=== PATIENT | female | born 2000 | race Caucasian/White ===

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

== ENCOUNTER 2018-01-05 16:11 | Emergency (ER) | payer OTHER ==
[2018-01-05 16:11] VITALS: BMI 34.5
[2018-01-05 16:25] VITALS: BP 138/84; PULSE 95; RESP 18; TEMP 98.1; O2SAT 98
[2018-01-05] MEDS ORDERED: PROPARACAINE/FLUORESCEIN SOD 100 DROP/5 ML BOTTLE ONE (16:42)
--- NOTE | 2018-01-05 16:48 | C.PDOC ---
History Of Present Illness 17 y/o female presents to ED complaining of itchiness to the right eye associated with redness and discharge since yesterday. Patient does not wear contact lens nor glasses. States it feels like something is in it. Otherwise she denies any visual changes, bleeding, pain, diplopia, headache, fever, sick contacts, or photophobia. Time Seen by Provider: 01/05/18 16:16 Chief Complaint (Nursing): Eye Problem History Per: Patient History/Exam Limitations: no limitations Onset/Duration Of Symptoms: Days Current Symptoms Are (Timing): Still Present Past Medical History Reviewed: Historical Data, Nursing Documentation, Vital Signs Vital Signs: Last Vital Signs Temp 98.1 F 01/05/18 16:18 Pulse 95 H 01/05/18 16:18 Resp 18 01/05/18 16:18 BP 138/84 01/05/18 16:18 Pulse Ox 98 01/05/18 16:18 - Medical History PMH: Asthma Family History: States: No Known Family Hx - Social History Hx Tobacco Use: No Hx Alcohol Use: No Hx Substance Use: No - Immunization History Hx Tetanus Toxoid Vaccination: Yes Hx Influenza Vaccination: No Hx Pneumococcal Vaccination: No Review Of Systems Except As Marked, All Systems Reviewed And Found Negative. Constitutional: Negative for: Fever Eyes: Positive for: Redness, Other (itchiness and discharge to R eye). Negative for: Pain, Vision Change Cardiovascular: Negative for: Chest Pain Respiratory: Negative for: Shortness of Breath Neurological: Negative for: Weakness, Numbness Physical Exam - Physical Exam Appears: Non-toxic, No Acute Distress Skin: Warm, Dry Head: Atraumatic, Normacephalic Eye(s): bilateral: PERRL, EOMI, right: Other (mild injection and discharge, no fluroscience uptake, no fb with lid enversion) Ear(s): Bilateral: Normal Nose: Normal Oral Mucosa: Moist Throat: Normal, No Erythema, No Exudate Neck: Normal ROM, Supple Chest: Symmetrical Respiratory: No Accessory Muscle Use Extremity: Normal ROM Neurological/Psych: Oriented x3, Normal Speech ED Course And Treatment O2 Sat by Pulse Oximetry: 98 (RA) Pulse Ox Interpretation: Normal Progress Note: Instructed to follow up with the eye doctor in1 -2 days. Disposition - Disposition Referrals: Orlin Carrion MD [Staff Provider] - Disposition: HOME/ ROUTINE Disposition Time: 16:46 Condition: STABLE Additional Instructions: Follow up with the eye doctor in 1-2 days. Return to ER if symptoms persist or worsen. Prescriptions: Tobramycin 0.3% [Tobrex 0.3% Ophth Soln] 2 drop OP Q4 #1 bottle Instructions: Conjunctivitis ([place]) (DC) Forms: [facility] (Gabonese) - Clinical Impression Clinical Impression: Conjunctivitis - PA / GRAPHIC ILLUSTRATOR / Resident Statement MD/DO has reviewed & agrees with the documentation as recorded. - Scribe Statement The provider has reviewed the documentation as recorded by the Scribe Zoila Stafford All medical record entries made by the Brad were at my direction and personally dictated by me. I have reviewed the chart and agree that the record accurately reflects my personal performance of the history, physical exam, medical decision making, and the department course for this patient. I have also personally directed, reviewed, and agree with the discharge instructions and disposition.
[2018-01-05] MEDS ORDERED: PROPARACAINE/FLUORESCEIN SOD 100 DROP/5 ML BOTTLE OD STA (17:04)
== END 2018-01-05 17:09 | disposition home or self-care (01) ==
LOC: C.ER 16:11
DX: H10.9 Unspecified conjunctivitis (principal)

== ENCOUNTER 2018-01-29 08:00 | Emergency (ER) | payer OTHER ==
[2018-01-29 08:04] VITALS: BMI 33.6
[2018-01-29] MEDS ORDERED: Apap-Butalbital-Caffeine 325-50-40mg Tab PO STA (08:18)
[2018-01-29] MEDS ORDERED: Apap-Butalbital-Caffeine 325-50-40mg Tab ONE (08:27)
--- NOTE | 2018-01-29 08:28 | C.PDOC ---
History Of Present Illness 17 y/o female with history of asthma presents to ED with c/o frontal pressure- like headache associated with nausea since yesterday. Patient has taken Ibuprofen with no improvement and admits to coughing and sneezing. Patient denies trauma, fever, sob, visual changes, vomiting, ear pain, weakness or numbness. Time Seen by Provider: 01/29/18 08:11 Chief Complaint (Nursing): Headache History Per: Patient History/Exam Limitations: no limitations Onset/Duration Of Symptoms: Days Current Symptoms Are (Timing): Still Present Quality: Pressure Past Medical History Reviewed: Historical Data, Nursing Documentation, Vital Signs Vital Signs: Last Vital Signs Temp 98 F 01/29/18 08:04 Pulse 84 01/29/18 08:04 Resp 18 01/29/18 08:04 BP 122/81 01/29/18 08:04 Pulse Ox 99 01/29/18 08:04 - Medical History PMH: Asthma Surgical History: No Surg Hx Family History: States: No Known Family Hx - Social History Hx Tobacco Use: No Hx Alcohol Use: No Hx Substance Use: No - Immunization History Hx Tetanus Toxoid Vaccination: No Hx Influenza Vaccination: No Hx Pneumococcal Vaccination: No Review Of Systems Constitutional: Negative for: Fever, Chills, Weakness, Malaise Eyes: Negative for: Vision Change, Redness ENT: Positive for: Nose Congestion. Negative for: Ear Pain, Throat Pain Cardiovascular: Negative for: Palpitations Respiratory: Positive for: Cough. Negative for: Shortness of Breath, Wheezing Gastrointestinal: Positive for: Nausea. Negative for: Vomiting, Abdominal Pain Neurological: Positive for: Headache. Negative for: Weakness, Numbness Physical Exam - Physical Exam Appears: Non-toxic, No Acute Distress Skin: Warm, Dry, No Rash Head: Atraumatic, Normacephalic, No Tenderness (temporal), No Swelling Eye(s): bilateral: Normal Inspection, PERRL, EOMI Ear(s): Bilateral: Normal Nose: Discharge (clear) Oral Mucosa: Moist Neck: Normal ROM, Supple Chest: Symmetrical Cardiovascular: Rhythm Regular, No Murmur Respiratory: Normal Breath Sounds, No Rales, No Rhonchi, No Wheezing Gastrointestinal/Abdominal: Soft, No Tenderness, No Guarding, No Rebound Extremity: Bilateral: Atraumatic, Normal Color And Temperature, Normal ROM Neurological/Psych: Oriented x3, Normal Speech ED Course And Treatment O2 Sat by Pulse Oximetry: 99 (RA) Pulse Ox Interpretation: Normal Medical Decision Making Medical Decision Making: Impression: frontal headache Plan: * Fioricet * Sudafed Progress: On re-evaluation the patient was sleeping comfortable on stretcher. She reports the pain has improved. Patient has no neurologic deficit, photophobia, rash, fever, or nuchal rigidity. Patient was instructed to follow up with physician/clinic in 1-2 days. Disposition Counseled Patient/Family Regarding: Need For Followup - Disposition Referrals: Shayne Morrow MD [Staff Provider] - Disposition: HOME/ ROUTINE Disposition Time: 09:27 Condition: GOOD Additional Instructions: Follow up with your primary medical doctor or clinic in 2-5 days for further evaluation. Take medications as prescribed. Return to the emergency department at any time if symptoms persist or worsen. Prescriptions: Acetaminophen/Butalbital/Caf [Fioricet] 1 tab PO TID PRN #20 tab PRN Reason: Headache Phenylephrine HCl [Sudafed PE] 10 mg PO Q8 #24 tablet Instructions: Viral Upper Respiratory Infection, Adult (DC), Headache, Adult Forms: [facility] (Turkish) - POA Present On Arrival: None - Clinical Impression Clinical Impression: Headache, URI (upper respiratory infection) - PA / ODD JOB WORKER / Resident Statement MD/DO has reviewed & agrees with the documentation as recorded. - Scribe Statement The provider has reviewed the documentation as recorded by the Scribcristin Stephenson All medical record entries made by the Scribcristin were at my direction and personally dictated by me. I have reviewed the chart and agree that the record accurately reflects my personal performance of the history, physical exam, medical decision making, and the department course for this patient. I have also personally directed, reviewed, and agree with the discharge instructions and disposition.
[2018-01-29 09:33] VITALS: BP 145/84; PULSE 81; RESP 16; TEMP 97.6
[2018-01-29 10:32] VITALS: O2SAT 99
== END 2018-01-29 09:39 | disposition home or self-care (01) ==
LOC: C.ER 08:00
DX: R51 Headache (principal); J06.9 Acute upper respiratory infection, unspecified